=== PATIENT | female | born 1980 | race Caucasian/White ===

== ENCOUNTER 2018-11-28 20:27 | Emergency (ER) | payer OTHER ==
[~2018-11-28] VITALS: Ht 172.7 cm; Wt 81.0 kg
[2018-11-28 20:38] VITALS: Ht 172.7 cm; Wt 81.0 kg
[2018-11-28 20:39] VITALS: BP 121/76; PULSE 92; RESP 19
[2018-11-28] MEDS ORDERED: SOD CHLORIDE 0.9% 1,000 ML IV STA (20:44)
== END 2018-11-28 22:32 | disposition home or self-care (01) ==
LOC: E/R 20:27
DX: R55 Syncope and collapse (principal); D64.9 Anemia, unspecified; E11.9 Type 2 diabetes mellitus without complications
CPT/HCPCS: 36415; 80048; 81003; 81025; 84439; 84443; 84484; 85025; 93005; J7030; Z7502